=== PATIENT | male | born 1970 | race Caucasian/White ===

== ENCOUNTER 2017-01-17 14:08 | Inpatient (IN) | payer BC, OTHER ==
[~2017-01-17] VITALS: Ht 177.8 cm; Wt 136.1 kg
[2017-01-17] MEDS ORDERED: MAGNESIUM HYDROXIDE 30 ML LIQUID UDC PO PRN (19:45)
[2017-01-17] MEDS ORDERED: ONDANSETRON 4 MG/2 ML VIAL IM PRN (19:45)
[2017-01-17] MEDS ORDERED: ONDANSETRON ODT 4 MG TAB.RAPDIS SL PRN (19:45)
[2017-01-17] MEDS ORDERED: LOPERAMIDE HCL 2 MG CAPSULE PO PRN ×2 (19:45)
[2017-01-17] MEDS ORDERED: HYDROXYZINE PAMOATE 25 MG CAPSULE PO PRN (19:45)
[2017-01-17] MEDS ORDERED: BUPRENORPHINE HCL 2 MG TAB.SUBL SL PRN (19:45)
[2017-01-17] MEDS ORDERED: METHOCARBAMOL 750 MG TABLET PO PRN (19:45)
[2017-01-17] MEDS ORDERED: IBUPROFEN 600 MG TABLET PO PRN (19:45)
[2017-01-17] MEDS ORDERED: diphenhydrAMINE 50 MG CAPSULE PO PRN (19:45)
[2017-01-17] MEDS ORDERED: ACETAMINOPHEN 325 MG TABLET PO PRN (19:45)
[2017-01-17] MEDS ORDERED: DICYCLOMINE HCL 20 MG TABLET PO PRN (19:45)
[2017-01-17] MEDS ORDERED: MAG HYDROX/AL HYDROX/SIMETH 30 ML LIQUID UDC PO PRN (19:45)
[2017-01-17] MEDS ORDERED: MIRALAX 17 GM POWD.PACK PO PRN (19:45)
[2017-01-17 19:50] LABS: *AMPHETAMINE, URINE NEGATIVE (NEGATIVE); *BARBITURATE, URINE NEGATIVE (NEGATIVE); *CANNABINOID, URINE NEGATIVE (NEGATIVE); *COCCAINE, URINE POSITIVE (NEGATIVE); *OPIATE, URINE POSITIVE (NEGATIVE); *PHENCYCLIDINE SCREEN,URINE NEGATIVE (NEGATIVE)
--- NOTE | 2017-01-17 20:00 | NUR ---
INTAKE ASSESSMENT: PT IS A/O X 4. V/S STABLE:B/P=138/67,P=86,R=18,T=98.2,O2 SAT=96%.NO C/O PAIN OR S/S OF DISTRESS NOTED. PT EXPLAINED OF Q 4 HR V/S AND ROUNDS FOR SAFETY.
[2017-01-17] MEDS: GABAPENTIN 300 MG CAPSULE PO SCH ×2 (21:00→22:23)
[2017-01-17] MEDS: PROPRANOLOL HCL 10 MG TABLET PO SCH ×2 (21:00→22:24)
--- NOTE | 2017-01-17 21:00 | NUR ---
ADMISSION NOTE-- Admitting 46 y/o male to [facility] for Heroin and Cocaine dependency.Pt is A/O X 4,placed on regular diet,full code status,has no known allergies to food or medication.Pt is 5 feet and 10 inches tall and weighs 300 pounds.Breathing is even and non labored,no s/s of respiratory distress noted;abdomen is soft;b/s present x 4;no c/o N/V/D noted;skin is warm,dry and intact;Pt noted to have track sierra on both arms and hardened skin on right hand.Bilateral lower extremities noted to be reddened and swollen.Pt stated he was admitted to [facility] last week for cirrhosis and swelling in his legs;Pt stated that the swelling has reduced and he is taking antibiotics and "water pill".He denies any other medical problem.No hx of seizures noted.Pt has a surgical hx of hernia repair,head surgery and left thumb surgery.He started using heroin and cocaine at the age of 15 years.He is currently using 0.25 grams of Heroin IV and snorts 0.25 grams of Cocaine,for the past 2 weeks;last used on 01/17/17.On admission COWS score is 2.No c/o pain or distress noted.Pt has been into several detox centers but relapsed.This time he is determined because he wants to stop using drugs.Treatment hx as follows-- [facility],LAST WEEK,FOR 2-3 DAYS. [facility] 2 YEARS AGO, FOR 3 WEEKS. [facility] IN [place],FOR 15 DAYS [facility] [place] FOR 1 WEEK. Pt oriented to room and unit,care plan and safety checks initiated.Pt was seen by Dr Hernandez.Education provided on smoking cessation,substance abuse,fall prevention in hospitals,hep C and seizures.Pt is unwilling to quit smoking at this time.All safety measures in place,bed is locked in the lowest position,side rails up x 2,call light within reach,will continue to monitor for safety.
[2017-01-17 21:54] LABS: BASOPHILS % (AUTO) 0.3 % (0.0-2.0); EOSINOPHILS # (AUTO) 0.2 K/uL (0.0-0.7); EOSINOPHILS % (AUTO) 2.7 % (0.0-7.0); LYMPHOCYTES # (AUTO) 1.9 K/UL (0.8-4.8); LYMPHOCYTES % (AUTO) 21.3 % (20.5-51.5); MEAN CORPUSCULAR HEMOGLOBIN 34.6 UUG (27.0-31.0); MEAN CORPUSCULAR HGB CONC 35 g/dL (32.0-37.0); MONOCYTES # (AUTO) 1.1 K/UL (0.1-1.30); MONOCYTES % (AUTO) 13.2 % (0.0-11.0); NEUTROPHILS # (AUTO) 5.5 K/UL (1.8-8.9); NEUTROPHILS % (AUTO) 62.5 % (38.5-71.5); PLATELET COUNT (AUTO) 84 K/UL (150-450); RED BLOOD CELL COUNT(AUTO) 4.34 MIL/UL (4.7-6.1); WHITE BLOOD COUNT (AUTO) 8.7 K/UL (4.0-11.2)
[2017-01-17 21:57] LABS: ALANINE AMINOTRANSFERASE 46 U/L (16-63); ALBUMIN 2.6 g/dL (3.4-5.0); ALKALINE PHOSPHATASE 111 U/L (50-136); AMMONIA 44 umol/L (11-32); ASPARTATE AMINOTRANSFERASE 111 U/L (15-37); BILIRUBIN,TOTAL 2.2 mg/dL (0.2-1.0); CALCIUM 8.1 mg/dL (8.5-10.1); CARBON DIOXIDE 29 mmol/L (21-32); CHLORIDE 104 mmol/L (98-107); GFR 80 mL/min (>60); GLUCOSE 110 mg/dL (74-106); MAGNESIUM 1.9 mg/dL (1.8-2.4); POTASSIUM 4.4 mmol/L (3.5-5.1); SODIUM SERUM 138 mmol/L (136-145); TOTAL PROTEIN, SERUM 7.3 g/dL (6.4-8.2); UREA NITROGEN, BLOOD 21 mg/dL (7-18)
[2017-01-17 21:58] LABS: ETHANOL < 3 MG/DL (0-0)
[2017-01-17 22:05] LABS: THYROID STIMULATING HORMONE 2.042 mIU/mL (0.358-3.740)
[2017-01-17 22:08] LABS: LYMPHOCYTES % (MANUAL) 25 % (20-40); MONOCYTES % (MANUAL) 14 % (2-10); NEUTROPHILS % (MANUAL) 61 % (42-75)
[2017-01-17 22:09] LABS: PLATELET ESTIMATE DECREASED
[2017-01-17 22:20] LABS: HIV-1 p24 ANTIGEN NON REACTIVE (NONREACTIVE); HIV-1/2 ANTIBODY NON REACTIVE (NONREACTIVE)
[2017-01-17] MEDS: CEPHALEXIN MONOHYDRATE 500 MG CAPSULE PO SCH (22:24)
[2017-01-17] MEDS ORDERED: PROPRANOLOL HCL 10 MG TABLET ONE (22:26)
[2017-01-17] MEDS ORDERED: GABAPENTIN 300 MG CAPSULE ONE (22:26)
[2017-01-17] MEDS ORDERED: CEPHALEXIN MONOHYDRATE 500 MG CAPSULE ONE (22:26)
[2017-01-17 23:13] LABS: BASOPHILS % (AUTO) 0.3 % (0.0-2.0); EOSINOPHILS # (AUTO) 0.3 K/uL (0.0-0.7); EOSINOPHILS % (AUTO) 2.5 % (0.0-7.0); HEMOGLOBIN 15.7 G/DL (14.0-18.0); LYMPHOCYTES # (AUTO) 2.2 K/UL (0.8-4.8); LYMPHOCYTES % (AUTO) 21.4 % (20.5-51.5); MEAN CORPUSCULAR HGB CONC 34 g/dL (32.0-37.0); MEAN CORPUSCULAR VOLUME 99.7 FL (82.0-92.0); MONOCYTES # (AUTO) 1.5 K/UL (0.1-1.30); NEUTROPHILS # (AUTO) 6.3 K/UL (1.8-8.9); NEUTROPHILS % (AUTO) 60.8 % (38.5-71.5); PLATELET COUNT (AUTO) 77 K/UL (150-450); RED BLOOD CELL COUNT(AUTO) 4.61 MIL/UL (4.7-6.1); RED CELL DISTRIBUTION WIDTH 13.6 % (11.5-14.5); WHITE BLOOD COUNT (AUTO) 10.3 K/UL (4.0-11.2)
[2017-01-17 23:26] LABS: EOSINOPHILS % (MANUAL) 2 % (0-8); LYMPHOCYTES % (MANUAL) 22 % (20-40); MONOCYTES % (MANUAL) 9 % (2-10); NEUTROPHILS % (MANUAL) 67 % (42-75)
[2017-01-17 23:27] LABS: PLATELET ESTIMATE DECRE
[2017-01-17] MEDS ORDERED: FURO20TA4 PO (23:45)
[2017-01-17] MEDS ORDERED: PROP10TA10 PO (23:45)
[2017-01-17] MEDS ORDERED: CEPH250C PO (23:46)
[2017-01-17] MEDS ORDERED: SPIR50TA3 PO (23:47)
[2017-01-17] MEDS ORDERED: CEPH500C2 PO (23:48)
[2017-01-18] VITALS: BP 129/62
[2017-01-18 04:00] VITALS: BP 103/62
[2017-01-18] MEDS: CEPHALEXIN MONOHYDRATE 500 MG CAPSULE PO SCH ×3 (06:26→21:23)
[2017-01-18] MEDS ORDERED: CEPHALEXIN MONOHYDRATE 500 MG CAPSULE ONE (06:31)
--- NOTE | 2017-01-18 06:52 | NUR ---
END OF SHIFT 46 y/o male admitted to [facility] for Heroin and Cocaine dependency.Pt is A/O X 4,placed on regular diet,full code status,has no known allergies to food or medication.PMH of HEP C,Cirrhosis and bilateral lower extremity stasis dermatitis with superimposed cellulitis .Pt is on antibiotic therapy, started last night; No adverse reactions noted; PO fluids encouraged as tolerated.Pt refused to take Inderal and Neurontin last night,Skin is intact;breathing even and non labored. Last COWS 2 at 0400.Pt slept without any problem. No PRN meds given last night;slept 4 hrs;fluid intake was 2056 mls;voided x 2 .No c/o pain or distress noted,all safety measures in place,call light within reach,will continue to monitor.
[2017-01-18 08:00] VITALS: BP 95/56
--- NOTE | 2017-01-18 08:00 | NUR ---
START OF SHIFT Received pt this am aox4. Patient presents with blunted affect and congruent mood. Patient appears very fatigued. Patient c/o body aches and stomach cramps.Patient presents with bilat lower extrem swelling and redness. Patient started on Keflex and Lasix. Patient on PRNs only. He slept 4 hours. COWS 3 at 0800. Blood pressure is 95/56. Morning BP meds help per parameters. Encouraged increase fluid intake to assist in detox. Will provide safe and supportive environment. Will monitor.
[2017-01-18] MEDS: PROPRANOLOL HCL 10 MG TABLET PO SCH ×2 (09:00→21:24)
[2017-01-18] MEDS: SPIRONOLACTONE 50 MG TABLET PO SCH (09:00)
[2017-01-18] MEDS ORDERED: TUBERCULIN,PURIF.PROT.DERIV. 5 TU/0.1 ML TEST ID ONE (09:00)
[2017-01-18] MEDS: GABAPENTIN 300 MG CAPSULE PO SCH ×3 (09:34→21:23)
[2017-01-18] MEDS: MULTIVITAMINS,THERAPEUTIC TABLET PO SCH (09:35)
[2017-01-18] MEDS: FUROSEMIDE 20 MG TABLET PO SCH (09:35)
[2017-01-18] MEDS ORDERED: BENZOCAINE/MENTH/CETYLPYRD LOZENGE MM PRN (11:15)
[2017-01-18 12:00] VITALS: BP 118/76
--- NOTE | 2017-01-18 12:00 | NUR ---
1200 COWS deferred. Patient sleeping. Arouses with stimulation and goes right back to sleep. Patient very fatigued. RR even and unlabored. Oxygen 99% RR 18. Bed locked and in lowest position and call varner within reach. Will continue to monitor.
[2017-01-18] MEDS ORDERED: LACTULOSE 20 G/30 ML LIQUID UDC PO PRN (15:30)
[2017-01-18 16:00] VITALS: BP 116/57
--- NOTE | 2017-01-18 17:34 | NUR ---
1600 COWS deferred Patient sleeping with rr even and unlabored. Bed locked and in lowest position and call varner within reach. Will continue to monitor.
--- NOTE | 2017-01-18 18:42 | NUR ---
END OF SHIFT Patient had uneventful day. Patient slept majority of shift. Patient on fall and seizure precautions. 1200 and 1600 COWS deferred due to patient being asleep. Patient on PRNs only. No PRNs needed during shift. Patient continues on ABX Keflex. Patient continues sleeping with RR even and unlabored at 18. Vitals stable during shift. All needs have been met. Side rails up and call varner within reach. Safety measures in place. Will endorse to hourly shift manager.
--- NOTE | 2017-01-18 19:30 | NUR ---
START OF SHIFT- Pt received sleeping in bed, minimally arousable on approach,then went back to sleep;breathing is even and non labored;no s/s of distress noted.Pt continues to remain on Keflex;no A/R noted.V/S have been stable;Last COWS=3.No ta[pers ordered;pt is on PRN meds only. All safety precautions observed; will continue to monitor.
[2017-01-18 20:00] VITALS: BP 138/78
[2017-01-19] VITALS: BP 126/82
--- NOTE | 2017-01-19 04:00 | NUR ---
PT REFUSED V/S,COWS DEFERRED.PT IS COMFORTABLY SLEEPING IN BED.RESPIRATIONS ARE EVEN AND NON LABORED,NO S/S OF DISTRESS NOTED;WILL BE MONITORED.
[2017-01-19] MEDS: CEPHALEXIN MONOHYDRATE 500 MG CAPSULE PO SCH ×2 (06:34→13:02)
--- NOTE | 2017-01-19 06:50 | NUR ---
END OF SHIFT- Pt received sleeping in bed, minimally arousable on approach,then went back to sleep;breathing is even and non labored;no s/s of distress noted.Pt continues to remain on Keflex;no A/R noted.V/S have been stable;Last COWS=2..No tapers ordered; pt is on PRN meds only.No PRN meds given last night.Pt slept 9 hrs; fluid intake was 740 mls; voided x 1. Pt is scheduled for discharge today. All safety precautions observed; will continue to monitor.
--- NOTE | 2017-01-19 07:39 | NUR ---
START OF SHIFT Received pt this am aox4. Patient presents with blunted affect and congruent mood. Patient appears very fatigued. Patient c/o body aches, hot sweats, congestion, restlessness and stomach cramps. He reports not being able to sleep. Patient presents with bilat lower extrem swelling and redness. Patient continues on Keflex and Lasix. Patient on PRNs only. No PRNs given during last shift. He slept 9 hours. Last COWS 2 per operation shift supervisor. Encouraged increase fluid intake to assist in detox. Will provide safe and supportive environment. Will monitor.
[2017-01-19 08:00] VITALS: BP 142/82
[2017-01-19] MEDS: PROPRANOLOL HCL 10 MG TABLET PO SCH (08:36)
[2017-01-19] MEDS: GABAPENTIN 300 MG CAPSULE PO SCH ×2 (08:36→14:07)
[2017-01-19] MEDS: MULTIVITAMINS,THERAPEUTIC TABLET PO SCH (08:36)
[2017-01-19] MEDS: SPIRONOLACTONE 50 MG TABLET PO SCH (08:37)
[2017-01-19] MEDS: FUROSEMIDE 20 MG TABLET PO SCH (08:37)
[2017-01-19 08:57] LABS: *AMPHETAMINE, URINE NEGATIVE (NEGATIVE); *BARBITURATE, URINE NEGATIVE (NEGATIVE); *CANNABINOID, URINE NEGATIVE (NEGATIVE); *COCCAINE, URINE POSITIVE (NEGATIVE); *OPIATE, URINE POSITIVE (NEGATIVE); *PHENCYCLIDINE SCREEN,URINE NEGATIVE (NEGATIVE)
--- NOTE | 2017-01-19 11:28 | NUR ---
PRN MEDS PRN Lactulose given for constipation per order. Will reassess
[2017-01-19 12:00] VITALS: BP 122/71
--- NOTE | 2017-01-19 12:15 | NUR ---
PRN REASSESSMENT patient reports no BM. will continue to monitor
[2017-01-19] MEDS ORDERED: Gabapentin PO (13:07)
[2017-01-19] MEDS ORDERED: DICY20TA28 PO (13:07)
[2017-01-19] MEDS ORDERED: METH-33 PO (13:07)
[2017-01-19] MEDS ORDERED: LACT10SO7 PO (13:07)
[2017-01-19] MEDS ORDERED: HYDR-3895 PO (13:07)
[2017-01-19 14:06] LABS: HCV AB >11.0 s/co ratio (0.0-0.9); HEPATITIS B CORE AB, IgM Negative (Negative); HEPATITIS B SURFACE AG Negative (Negative)
--- NOTE | 2017-01-19 14:08 | NUR ---
patient reports diarrhea. md aware. will monitor
--- NOTE | 2017-01-19 14:09 | NUR ---
PRN MEDS PRN Robaxin and Vistaril given per Dr. Hernandez verbal order. Pt presents with anxiety and body aches. Will reassess
[2017-01-19 14:36] LABS: ALBUMIN 2.4 g/dL (3.4-5.0); BASOPHILS % (AUTO) 0.6 % (0.0-2.0); BILIRUBIN,DIRECT 0.5 mg/dL (0.0-0.2); BILIRUBIN,TOTAL 1.2 mg/dL (0.2-1.0); CREATININE 0.9 mg/dL (0.6-1.3); EOSINOPHILS # (AUTO) 0.1 K/uL (0.0-0.7); EOSINOPHILS % (AUTO) 1.9 % (0.0-7.0); HEMATOCRIT 43.6 % (40-50); HEMOGLOBIN 14.7 G/DL (14.0-18.0); LYMPHOCYTES # (AUTO) 2.1 K/UL (0.8-4.8); LYMPHOCYTES % (AUTO) 27.5 % (20.5-51.5); MAGNESIUM 1.9 mg/dL (1.8-2.4); MEAN CORPUSCULAR HEMOGLOBIN 33.5 UUG (27.0-31.0); MEAN CORPUSCULAR HGB CONC 34 g/dL (32.0-37.0); MEAN CORPUSCULAR VOLUME 99.4 FL (82.0-92.0); MONOCYTES # (AUTO) 0.9 K/UL (0.1-1.30); MONOCYTES % (AUTO) 11.9 % (0.0-11.0); NEUTROPHILS # (AUTO) 4.4 K/UL (1.8-8.9); NEUTROPHILS % (AUTO) 58.1 % (38.5-71.5); POTASSIUM 4.1 mmol/L (3.5-5.1); RED BLOOD CELL COUNT(AUTO) 4.39 MIL/UL (4.7-6.1); RED CELL DISTRIBUTION WIDTH 13.8 % (11.5-14.5); WHITE BLOOD COUNT (AUTO) 7.5 K/UL (4.0-11.2)
[2017-01-19 14:39] LABS: PLATELET COUNT (AUTO) 87 K/UL (150-450)
--- NOTE | 2017-01-19 16:30 | NUR ---
DISCHARGE NOTE Patient is in stable condition. Vital signs are WNL. Pt is alert and oriented x4, skin intact. Patient denies any suicidal or homicidal ideations. All discharge paperwork completed, dated, and signed. patient educated about discharge instructions, what to do after discharge and when to contact MD. Pt verbalized understanding of all info given. Last COWS 3. Pt was discharged from [facility] on 01/19/17 at 1615. Pt was escorted to lobby by [employer]LL [employer] DESK WORKER and left building with all of his belongings and prescriptions and home medications and picked up by [employer] transportation. Md has been contacted of patient discharge.
[2017-01-19 17:56] LABS: BAND % (MANUAL) 4 % (0-10); EOSINOPHILS % (MANUAL) 1 % (0-8); LYMPHOCYTES % (MANUAL) 27 % (20-40); MONOCYTES % (MANUAL) 9 % (2-10); NEUTROPHILS % (MANUAL) 59 % (42-75)
[2017-01-19 17:57] LABS: ANISOCYTOSIS 1+; PLATELET ESTIMATE SLIGHT DECREASED
== END 2017-01-19 16:45 | disposition other institution (70) | DRG 895 ==
LOC: SRC 18:46
PROVIDERS: ADMIT Internal Medicine; ATTEND Internal Medicine
PROC: HZ2ZZZZ Detoxification Services for Substance Abuse Treatment (ICD-10-PCS; principal; 2017-01-17)
PROC: HZ31ZZZ Individual Counseling for Substance Abuse Treatment, Behavioral (ICD-10-PCS; 2017-01-18)
DX: F11.229 Opioid dependence with intoxication, unspecified (principal); L03.116 Cellulitis of left lower limb; L03.115 Cellulitis of right lower limb; F14.220 Cocaine dependence with intoxication, uncomplicated; K71.51 Toxic liver disease with chronic active hepatitis with ascites; B18.2 Chronic viral hepatitis C; Z83.3 Family history of diabetes mellitus; Z65.3 Problems related to other legal circumstances; F17.210 Nicotine dependence, cigarettes, uncomplicated; I87.2 Venous insufficiency (chronic) (peripheral); R79.89 Other specified abnormal findings of blood chemistry; T88.7XXA Unspecified adverse effect of drug or medicament, initial encounter; T50.2X5A Adverse effect of carbonic-anhydrase inhibitors, benzothiadiazides and other diuretics, initial encounter; Y92.89 Other specified places as the place of occurrence of the external cause; F39 Unspecified mood [affective] disorder; D69.6 Thrombocytopenia, unspecified; D77 Other disorders of blood and blood-forming organs in diseases classified elsewhere
CPT/HCPCS: 36415; 71010; 80307; 80353; 80361; 83735; 84443; 85025; 86580; 86592; 86705; 86803; 87340; 87521; 87806; A4663; G6040-TC; Q0163